=== PATIENT | male | born 1960 | race Two or more races ===

== ENCOUNTER 2019-09-16 19:56 | Emergency (ER) | payer MEDICARE, MEDICAID ==
[~2019-09-16] VITALS: Ht 177.8 cm; Wt 104.3 kg
[2019-09-16] MEDS ORDERED: TETRACAINE HCL 0.5% OPTH(EYE) SOLN 4ML RIGHTEYE ONE (23:30)
[2019-09-16] MEDS ORDERED: FLUORESCEIN SOD 1 MG TEST STRIP RIGHTEYE ONE (23:30)
[2019-09-16 23:41] VITALS: BP 184/119
[2019-09-17] MEDS ORDERED: cloNIDine HCL 0.1 MG TAB PO ONE
== END 2019-09-17 01:00 | disposition left against medical advice (07) ==
LOC: ER 19:58
DX: S05.01XA Injury of conjunctiva and corneal abrasion without foreign body, right eye, initial encounter (principal); X58.XXXA Exposure to other specified factors, initial encounter; Y93.89 Activity, other specified; Y92.89 Other specified places as the place of occurrence of the external cause; Y99.8 Other external cause status; I10 Essential (primary) hypertension